=== PATIENT | male | born 1960 | race Caucasian/White ===

== ENCOUNTER 2017-07-20 11:21 | Outpatient (CLI) ==
[2017-07-20 11:51] LABS: CREATININE 1.34 mg/dL (0.60-1.10)
--- NOTE | 2017-07-20 12:51 | CT ---
EXAM: CT of the abdomen pelvis with contrast History: Abdominal pain, constipation. Technique: Multiplanar CT images through the abdomen pelvis were obtained following administration of IV contrast Findings: Lung bases are clear. No acute osseous abnormalities. Status post cholecystectomy. Fatty liver. Spleen is unremarkable. No renal masses. No hydronephros is. Diffuse colonic wall thickening. Atherosclerotic vascular calcifications. Pancreas and adrenal glands are unremarkable. No bladder wall thickening. No free air. No ascites. The appendix is no t dilated or inflamed. No bladder wall thickening. Prostate is not enlarged. No significant coloni c stool. Impression: 1. Pancolitis. Etiology is most likely infectious or inflammatory. 2. Hepatic steatosis.
== END 2017-07-20 11:22 | disposition home or self-care (01) ==
LOC: LAB 11:21
PROVIDERS: ATTEND Internal Medicine
DX: R10.30 Lower abdominal pain, unspecified (principal); K59.00 Constipation, unspecified
CPT/HCPCS: 36415; 82565